=== PATIENT | female | born 1945 | race Caucasian/White ===

== ENCOUNTER → 2021-09-27 | Outpatient (CLI) | payer MEDICARE, BC ==
[2021-09-27 16:41] LABS: BASO # 0.1 x10^3/uL (0.0-0.2); BASO % 1 % (0-3); EOS # 0.4 x10^3/uL (0.0-0.7); EOS % 8 % (0-3); HEMATOCRIT 38.4 % (36.0-47.0); HEMOGLOBIN 12.8 g/dL (12.0-15.5); LYMPH # 1.1 x10^3/uL (1.0-4.8); LYMPH % 21 % (24-48); MEAN CORPUSCULAR HEMOGLOBIN 30 pg (25-35); MEAN CORPUSCULAR HGB CONC 33 g/dL (31-37); MEAN CORPUSCULAR VOLUME 91 fL (79-100); MONO # 0.5 x10^3/uL (0.0-1.1); MONO % 9 % (0-9); NEUT # 3.2 x10^3uL (1.8-7.7); NEUT % 61 % (31-73); PLATELET COUNT 170 x10^3/uL (140-400); RED BLOOD COUNT 4.21 x10^6/uL (3.50-5.40); RED CELL DISTRIBUTION WIDTH 14.8 % (11.5-14.5); WHITE BLOOD COUNT 5.3 x10^3/uL (4.0-11.0)
[2021-09-27 16:48] LABS: ALBUMIN 3.6 g/dL (3.4-5.0); ALBUMIN/GLOBULIN RATIO 0.8 (1.0-1.7); CALCIUM 9.3 mg/dL (8.5-10.1); CREATININE 1.1 mg/dL (0.6-1.0); GFR 48.3; POTASSIUM 4.1 mmol/L (3.5-5.1); TOTAL BILIRUBIN 0.6 mg/dL (0.2-1.0); TOTAL PROTEIN 8.1 g/dL (6.4-8.2)
[2021-09-28 00:14] LABS: ALPHA 1 ANTITRYPSIN 94 mg/dL (101-187); IMMUNOGLOBULIN G 1528 mg/dL (586-1602); TRANSFERRIN 287 mg/dL (192-364)
[2021-09-28 17:07] LABS: CERULOPLASMIN 25.1 mg/dL (19.0-39.0)
[2021-09-30 12:11] LABS: MITOCHONDRIAL ABDY <20.0 Units (0.0-20.0)
== END ==
LOC: LAB 15:36
PROVIDERS: ATTEND Internal Medicine
DX: R77.2 Abnormality of alphafetoprotein (principal); R76.0 Raised antibody titer; R74.8 Abnormal levels of other serum enzymes; R97.8 Other abnormal tumor markers; D69.9 Hemorrhagic condition, unspecified
CPT/HCPCS: 36415; 80053; 82103; 82105; 82390; 82728; 82784; 83516; 83540; 83550; 84466; 85025; 85610; 86709

== ENCOUNTER → 2021-12-24 | Outpatient (CLI) | payer MEDICARE, BC ==
--- NOTE | 2021-12-26 10:45 | RAD ---
INDICATION : Routine Screening. COMPARISON: [facility] including August 2019 TECHNIQUE: Standard mammogram screening views of the bilateral breasts were obtained with 3D tomosynt hesis. CAD was utilized. FINDINGS: The breasts are scattered density. There is repeat demonstration of benign-appearing calcifications without a new suspicious mass. IMPRESSION: BI-RADS Category 2: Benign findings. Recommend repeat screening examination in one year. The patient was placed into the recall system with a suggested recall date for follow up imaging. Mammography is the most sensitive method for finding small breast cancers, but it does not detect the m all and is not a substitute for careful clinical examination. A negative mammogram does not negate a clinically suspicious finding and should not result in delay in biopsying a clinically suspicious abnormality. Electronically signed by: Emiliano De Jesus MD (12/26/2021 10:42 AM) [id number]
== END ==
LOC: MAMMO 13:06
PROVIDERS: ATTEND Internal Medicine
DX: Z12.31 Encounter for screening mammogram for malignant neoplasm of breast (principal)
CPT/HCPCS: 77063; 77067